=== PATIENT | male | born 1955 | race Caucasian/White ===

== ENCOUNTER 2022-09-05 12:41 | Emergency (ER) | payer OTHER ==
--- OUTSIDE RECORDS SUMMARY | 2022-09-05 12:44 | XMS REPORT | Continuity of Care Document ---
:1955 Author Organization [facility] t Address [address] [place] [address] [address] [place] [address] Care Team Providers Name Role Phone DR RUFUS YOUNG Attending Clinician Unavailable DR RUFUS YOUNG Admitting Clinician Unavailable Problems This patient has no known problems. Allergies, Adverse Reactions, Alerts Allergy Allergy Status Severity Reaction(s) Onset Inactive Treating Comm ents Source Name Type Date Date Clinician No Known DA Active [facility] s Medications This patient has no known medications. Vital Signs Vital Name Observation Time Observation Value Comments Source Weight 2019-08-22 04:30:00 104.77 KG Height 2019-08-22 04:30:00 177.8 CM Procedures Procedure Date / Time Performed Performing Clinician Sour e REPL LT MT-PHALANG JNT 2019-08-22 00:00:00 [facility] OPEN Center Encounters Start End Encounter Admission Attending Care Care Encounter Source Date/Time Date/Time Type Type Clinicians Facility Department ID 2019-08-22 2019-08-22 Outpatient LIANNA [place] [facility] [id number] 04:22:00 08:30:00 RUFUS Melchor [facility] Results This patient has no known results.
[2022-09-05 14:17] LABS: Hematocrit 46.3 % (39.6-49.0); MCV 93.8 fL (80-100); MPV 8.4 fL (7.6-11.3); Protime INR 1.1; RBC Red Blood Cell Count 4.93 M/uL (4.33-5.43)
--- NOTE | 2022-09-05 14:25 | RAD REPORT ---
EXAM DESCRIPTION: CT - Head Brain Wo Cont - 09/05/2022 2:10 pm CLINICAL HISTORY: dizziness COMPARISON: No comparisons TECHNIQUE: All CT scans are performed using dose optimization technique as appropriate and may inclu de automated exposure control or mA/KV adjustment according to patient size. FINDINGS: No intracranial hemorrhage, hydrocephalus or extra-axial fluid collection.No areas of brai n edema or evidence of midline shift. The paranasal sinuses and mastoids are clear. The calvarium is intact. IMPRESSION: No acute intracranial abnormality.
--- NOTE | 2022-09-05 14:27 | RAD REPORT ---
EXAM DESCRIPTION: CT - Head angio - 09/05/2022 2:10 pm CLINICAL HISTORY: dizziness COMPARISON: Head Brain Wo Cont dated 09/05/2022 TECHNIQUE: CT angiography of the head was performed with MIPs. All CT scans are performed using dose optimization technique as appropriate and may include automated exposure control or mA/KV adjustment according to patient size. FINDINGS: Anterior circulation: No aneurysm or large vessel occlusion. No hemodynamically significant stenosis. No arteriovenous malf ormation identified. Posterior circulation: No aneurysm or large vessel occlusion. No hemodynamically significant stenosis. No arteriovenous malf ormation identified. IMPRESSION: No significant flow abnormality is detected.
--- NOTE | 2022-09-05 14:28 | RAD REPORT ---
EXAM DESCRIPTION: CT - Neck Angio - 09/05/2022 2:10 pm CLINICAL HISTORY: dizziness COMPARISON: No comparisons TECHNIQUE: CT angiography of the neck vessels was performed with MIPs. All CT scans are performed using dose optimization technique as appropriate and may include automated exposure control or mA/KV adjustment according to patient size. FINDINGS: A left aortic arch is identified with normal three vessel configuration of the great vesse ls. No significant flow abnormality is seen of the common carotid bilaterally. No significant stenosis is identified involving the cervical segments of both internal carotid arteri es. Normal flow is seen within both vertebral arteries. Bridging osteophytes in the spine. Enlarged multinodular thyroid. Mild right maxillary sinus mucosal thickening. IMPRESSION: No significant flow abnormality of the neck vessels is identified.
[2022-09-05 14:31] LABS: Albumin 3.9 g/dL (3.4-5.0); Bilirubin Direct 0.1 mg/dL (0-0.2); Bilirubin Total 0.7 mg/dL (0.2-1.0); Magnesium 2.2 mg/dL (1.6-2.4); Protein, Total 7.5 g/dL (6.4-8.2); Troponin High Sensitivity 12.2 pg/mL (<58.9)
--- NOTE | 2022-09-05 14:49 | RAD REPORT ---
EXAM DESCRIPTION: MRI - Brain Wo Cont - 09/05/2022 2:30 pm CLINICAL HISTORY: dizziness COMPARISON: No comparisons TECHNIQUE: Sagittal T1-weighted images were obtained along with PD/heavily T2-weighted and T2-FLAIR images. Axial DWI and ADC mapping sequences were also obtained along with coronal heavily T2-weighted images were obtained. FINDINGS: No intracranial hemorrhage, mass or acute infarction. There is no edema or shift of midlin e structures. No extra-axial fluid collections. Signal voids are seen as a normal finding in the angelica r intracranial vessels. Mild T2/FLAIR hyperintense signal foci within the centrum semiovale and coron a radiata. Mastoid air cells and paranasal sinuses are clear. IMPRESSION: No acute intracranial abnormality. Specifically, no evidence of acute infarct. Mild chronometer assembler enzo small vessel ischemic changes.
--- NOTE | 2022-09-05 14:56 | RAD REPORT ---
EXAM DESCRIPTION: RAD - Chest Single View - 09/05/2022 2:47 pm CLINICAL HISTORY: dizziness COMPARISON: Chest Pa And Lat (2 Views) dated 11/06/2016 FINDINGS: Lines: None. Lungs: No evidence of edema or pneumonia. Pleural: No significant pleural effusions or pneumothorax. Cardiac: The heart size is within normal limits. Mediastinum: Within normal limits. Bones: No acute fractures. Other: None IMPRESSION: No acute cardiopulmonary disease.
[2022-09-05] MEDS ORDERED: MECLIZINE HCL 12.5 MG TAB ONE (15:31)
--- NOTE | 2022-09-05 15:54 | ER ---
Nurse's Notes [facility] Name: Arsenio Damon Age: 66 yrs Sex: Male : 1955 Arrival Date: 09/05/2022 Time: 12:44 Bed 12 Private MD: Diagnosis: Vertigo;Dizziness Presentation: 09/05 13:14 Chief complaint: Patient states: Dizziness for 2 days. No N/V. Coronavirus screen: ll1 Vaccine status: Patient reports receiving the 2nd dose of the covid vaccine. Client denies travel out of the [place] in the last 14 days. At this time, the client does not indicate any symptoms associated with coronavirus-19. Ebola Screen: Patient denies travel to an Ebola-affected area in the 21 days before illness onset. Initial Sepsis Screen: Does the patient meet any 2 criteria? No. Patient's initial sepsis screen is negative. Does the patient have a suspected source of infection? No. Patient's initial sepsis screen is negative. Risk Assessment: Do you want to hurt yourself or someone else? Patient reports no desire to harm self or others. Onset of symptoms was September 04, 2022. 13:14 Method Of Arrival: Wheelchair ll1 13:14 Acuity: EDWARDO 3 ll1 Triage Assessment: 13:17 General: Appears in no apparent distress. Behavior is calm, cooperative, appropriate ll1 for age. Pain: Denies pain. Neuro: Reports dizziness. Historical: - Allergies: 13:16 No Known Allergies; ll1 - PMHx: 13:16 Atrial fibrillation; hearing loss; ll1 - PSHx: 13:16 foot SX; ll1 - Immunization history:: Client reports receiving the 2nd dose of the Covid vaccine. - Social history:: Smoking status: Patient reports use of chewing tobacco. Screenin:37 [facility] ED Fall Risk Assessment (Adult) History of falling in the last 3 months, em6 including since admission No falls in past 3 months (0 pts) Confusion or Disorientation No (0 pts) Intoxicated or Sedated No (0 pts) Impaired Gait Yes (1 pt) Mobility Assist Device Used Yes (1 pt) Altered Elimination No (0 pt) Score/Fall Risk Level 0 - 2 = Low Risk Oriented to surroundings, Maintained a safe environment, Educated pt \T\ family on fall prevention, incl call for assistance when getting out of bed, Assessed \T\ reinforced patient's understanding of fall precautions, Provided non-skid footwear, Hourly rounding (assess needs \T\ fall precautionary measures) done, Used ambulatory aids as needed (educated on \T\ assisted with), Used gait belt as appropriate. Abuse screen: Denies threats or abuse. Nutritional screening: No deficits noted. Tuberculosis screening: No symptoms or risk factors identified. Assessment: 15:36 General: Appears in no apparent distress. Behavior is cooperative. Pain: Denies pain. em6 Neuro: Level of Consciousness is awake, alert, obeys commands, Oriented to person, place, time, situation, Reports dizziness. Cardiovascular: Patient's skin is warm and dry. Respiratory: Airway is patent Respiratory effort is even, unlabored, Respiratory pattern is regular, symmetrical. GI: Reports nausea. : No signs and/or symptoms were reported regarding the genitourinary system. EENT: No signs and/or symptoms were reported regarding the EENT system. Derm: No signs and/or symptoms reported regarding the dermatologic system. Musculoskeletal: Circulation, motion, and sensation intact. Range of motion: intact in all extremities. Vital Signs: 13:14 BP 179 / 94; Pulse 61; Resp 17; Temp 98.0; Pulse Ox 98% on R/A; Weight 99.79 kg; Height iw 5 ft. 11 in. (180.34 cm); Pain 0/10; 15:35 BP 155 / 91; Pulse 56; Resp 18; Pulse Ox 98% on R/A; em6 13:14 Body Mass Index 30.68 (99.79 kg, 180.34 cm) ED Course: 12:44 Patient arrived in ED. mr 13:16 Triage completed. ll1 13:17 Arm band placed on. ll1 13:34 Arsenio Martinez PA is PHCP. jmm 13:34 Jacques Alaniz MD is Attending Physician. jmm 14:06 CT completed. Patient tolerated procedure well. Note: 22g diffusics to lt ac by jeffry mancera in ct, labs drawn and sent. Patient moved to CT via wheelchair. 14:11 CT Head Angio In Process Unspecified. EDMS 14:11 CT Neck Angio In Process Unspecified. EDMS 14:11 CT Head Brain wo Cont In Process Unspecified. EDMS 14:23 Brain Wo Cont In Process Unspecified. EDMS 14:49 XRAY Chest (1 view) In Process Unspecified. EDMS 15:26 Danelle Hays, RN is Primary Nurse. em6 15:37 Bed in low position. Call light in reach. Side rails up X 1. ekg monitor on. Pulse em6 ox on. NIBP on. Warm blanket given. 15:52 Carlos Morse MD is Referral Physician. [facility] 15:58 No provider procedures requiring assistance completed. IV discontinued, intact, em6 bleeding controlled, No redness/swelling at site. Pressure dressing applied. Administered Medications: 15:35 Drug: Meclizine 50 mg Route: PO; em6 16:10 Follow up: Response: No adverse reaction em6 Medication: 15:37 VIS not applicable for this client. em6 Outcome: 15:53 Discharge ordered by . jmm 16:09 Discharged to home via wheelchair. em6 16:09 Condition: stable 16:09 Discharge instructions given to patient, family, Instructed on discharge instructions, follow up and referral plans. medication usage, Demonstrated understanding of instructions, follow-up care, medications. 16:10 Patient left the ED. em6 Signatures: Dispatcher [employer] EDMS Arsenio Martinez PA PA [facility] Miguel A Alisson Ch, Neva Lowe, NADIR RN iw Chuck Mercado, RN RN ll1 Danelle Hays, RN RN em6 Corrections: (The following items were deleted from the chart) 13:17 13:16 PMHx: foot SX; ll1 ll1 13:21 13:14 BP 179 / 94; Pulse 61bpm; Resp 17bpm; Pulse Ox 98% RA; 99.79 kg; Height 5 ft. 11 iw in.; BMI: 30.6; Pain 0/10; ll1
--- NOTE | 2022-09-05 15:54 | EDPHYS ---
Physician Documentation [facility] Name: Arsenio Damon Age: 66 yrs Sex: Male : 1955 Arrival Date: 09/05/2022 Time: 12:44 Bed 12 Private MD: CHAS Physician Jacques Alaniz HPI: 09/05 13:18 This 66 yrs old Male presents to ER via Wheelchair with complaints of Dizziness. jmm 13:18 The patient presents with dizziness, sense of spinning. Onset: The symptoms/episode jmm began/occurred acutely, last night. Modifying factors: The symptoms are alleviated by holding head still, lying down, the symptoms are aggravated by movement of head, standing up, changing position. Associated signs and symptoms: Pertinent negatives: abdominal pain, chest pain, near-syncope, shortness of breath. The patient has not experienced similar symptoms in the past. Historical: - Allergies: 13:16 No Known Allergies; ll1 - PMHx: 13:16 Atrial fibrillation; hearing loss; ll1 - PSHx: 13:16 foot SX; ll1 - Immunization history:: Client reports receiving the 2nd dose of the Covid vaccine. - Social history:: Smoking status: Patient reports use of chewing tobacco. ROS: 13:18 Constitutional: Negative for fever, chills, and weight loss. jmm 13:18 Eyes: Negative for injury, pain, redness, and discharge, Cardiovascular: Negative for chest pain, palpitations, and edema, Respiratory: Negative for shortness of breath, cough, wheezing, and pleuritic chest pain. Exam: 15:51 Constitutional: This is a well developed, well nourished patient who is awake, alert, jmm and in no acute distress. Head/Face: atraumatic. 15:51 ENT: Moist Mucus Membranes Neck: Trachea midline, Supple Chest/axilla: Normal chest wall appearance and motion. Cardiovascular: Regular rate and rhythm. No edema appreciated Respiratory: Normal respirations, no respiratory distress appreciated Abdomen/GI: Non distended Skin: General appearance color normal MS/ Extremity: Moves all extremities, no obvious deformities appreciated, no edema noted to the lower extremities 15:51 Eyes: Nystagmus: nystagmus with fast component noted, bilaterally. 15:51 Neuro: Orientation: is normal, Mentation: is normal, Memory: is normal, Cerebellar function: normal finger to nose testing, Motor: is normal. Vital Signs: 13:14 BP 179 / 94; Pulse 61; Resp 17; Temp 98.0; Pulse Ox 98% on R/A; Weight 99.79 kg; Height iw 5 ft. 11 in. (180.34 cm); Pain 0/10; 15:35 BP 155 / 91; Pulse 56; Resp 18; Pulse Ox 98% on R/A; em6 13:14 Body Mass Index 30.68 (99.79 kg, 180.34 cm) iw MDM: 13:35 Patient medically screened. [facility] 14:57 Data reviewed: vital signs, nurses notes. [facility] 15:51 Counseling: I had a detailed discussion with the patient and/or guardian regarding: the [facility] historical points, exam findings, and any diagnostic results supporting the discharge/admit diagnosis, lab results, radiology results, the need for outpatient follow up, to return to the emergency department if symptoms worsen or persist or if there are any questions or concerns that arise at home. ED course: Patient is alert nontoxic in appearance in the ED. Cerebellar exam was normal. CT, CTA, MRI did not reveal any acute concerning process. Patient vies follow with neurology for further evaluation otherwise given strict return precautions. Patient understood and agrees plan of care.. 09/05 13:36 Order name: Basic Metabolic Panel; Complete Time: 14:32 [facility] 09/05 13:36 Order name: CBC with Diff; Complete Time: 14:27 [facility] 09/05 13:36 Order name: LFT's; Complete Time: 14:32 [facility] 09/05 13:36 Order name: Magnesium; Complete Time: 14:32 [facility] 09/05 13:36 Order name: NT PRO-BNP; Complete Time: 14:32 [facility] 09/05 13:36 Order name: PT-INR; Complete Time: 14:18 [facility] 09/05 13:36 Order name: Troponin HS; Complete Time: 14:32 [facility] 09/05 13:36 Order name: XRAY Chest (1 view); Complete Time: 14:58 [facility] 09/05 13:36 Order name: CT Head Angio; Complete Time: 14:30 [facility] 09/05 13:36 Order name: CT Neck Angio; Complete Time: 14:30 [facility] 09/05 13:36 Order name: CT Head Brain wo Cont; Complete Time: 14:27 [facility] 09/05 13:37 Order name: MRI - Brain Wo Cont [facility] 09/05 13:46 Order name: Brain Wo Cont; Complete Time: 14:51 [facility] 09/05 14:41 Order name: CREATININE WHOLE BLOOD; Complete Time: 14:42 [facility] 09/05 13:18 Order name: EKG; Complete Time: 13:18 [facility] 09/05 13:18 Order name: EKG - Nurse/Tech; Complete Time: 13:25 [facility] 09/05 13:36 Order name: Cardiac monitoring; Complete Time: 15:35 [facility] 09/05 13:36 Order name: EKG - Nurse/Tech; Complete Time: 13:52 [facility] 09/05 13:36 Order name: IV Saline Lock; Complete Time: 14:18 [facility] 09/05 13:36 Order name: Labs collected and sent; Complete Time: 14:18 [facility] 09/05 13:36 Order name: O2 Per Protocol; Complete Time: 15:35 [facility] 09/05 13:36 Order name: O2 Sat Monitoring; Complete Time: 15:35 [facility] Administered Medications: 15:35 Drug: Meclizine 50 mg Route: PO; em6 16:10 Follow up: Response: No adverse reaction em6 Disposition Summary: 09/05/22 15:53 Discharge Ordered Location: Home [facility] Condition: Stable [facility] Diagnosis - Vertigo [facility] - Dizziness [facility] Followup: [facility] - With: Carlos Morse MD - When: 2 - 3 days - Reason: Recheck today's complaints, Continuance of care, Re-evaluation by your physician Discharge Instructions: - Discharge Summary Sheet [facility] - Vertigo [facility] - How to Perform the Rashawn Maneuver [facility] Forms: - Medication Reconciliation Form [facility] - Thank You Letter [facility] - Antibiotic Education [facility] - Prescription Opioid Use [facility] Prescriptions: - Meclizine 25 mg Oral Tablet - take 1 tablet by ORAL route every 8 hours As needed; 30 tablet; Refills: 0, [facility] Product Selection Permitted Signatures: Dispatcher [employer] EDMS Arsenio Martinez PA PA jmm Chuck Mercado RN RN ll1 Danelle Hays RN RN em6 Corrections: (The following items were deleted from the chart) 13:17 13:16 PMHx: foot SX; ll1 ll1
[2022-09-05 16:14] VITALS: TEMP 98; O2SAT 98
[2022-09-05 16:15] VITALS: BP 155/91
--- NOTE | 2022-09-07 17:51 | EKG ---
Test Date: 2022-09-05 Test Time: 13:27:55 Curator Of Manuscripts: MARIANNE MEASUREMENT RESULTS: Intervals: Rate: 57 MS: 126 QRSD: 88 QT: 428 QTc: 416 Palmer: P: 9 MS: 126 QRS: 22 T: 52 INTERPRETIVE STATEMENTS: Sinus bradycardia Otherwise normal ECG Compared to ECG 11/28/2016 09:15:42 Sinus rhythm no longer present Electronically Signed On 09-07-22 17:46:13 [employer] by Efren Edwards
== END 2022-09-05 16:10 | disposition home or self-care (01) ==
LOC: ER 12:41
DX: R42 Dizziness and giddiness (principal); I48.91 Unspecified atrial fibrillation; F17.220 Nicotine dependence, chewing tobacco, uncomplicated
CPT/HCPCS: 93005; 85025; 80048; 36415; 83735; 85610; 82565; 80076; 84484; 83880; 70450; 70496; 70498; 71045; 70551; 99284; Q9967; J8597

== ENCOUNTER 2023-06-12 15:22 | Observation (INO) | payer OTHER ==
--- OUTSIDE RECORDS SUMMARY | 2023-06-12 15:36 | XMS REPORT | Continuity of Care Document ---
:1955 Author Organization [facility] t Address [address] [place] [address] [place] [id number] Care Team Providers Name Role Phone Paul Grady Attending Clinician Unavailable DR RUFUS YOUNG Attending Clinician Unavailable DR RUFUS YOUNG Admitting Clinician Unavailable Problems This patient has no known problems. Allergies, Adverse Reactions, Alerts Allergy Allergy Status Severity Reaction(s) Onset Inactive Treating Comm ents Source Name Type Date Date Clinician No Known DA Active [facility] s Medications This patient has no known medications. Vital Signs Vital Name Observation Time Observation Value Comments Source Height 2019-08-22 04:30:00 177.8 CM Weight 2019-08-22 04:30:00 104.77 KG Procedures Procedure Date / Time Performed Performing Clinician [facility] e REPL LT MT-PHALANG JNT 2019-08-22 00:00:00 [place] Center Encounters Start End Encounter Admission Attending Care Care Encounter Source Date/Time Date/Time Type Type Clinicians Facility Department ID 2023-05-03 Outpatient Paul Grady [facility] [id number] 13:24:01 [id number] [facility] 2019-08-22 2019-08-22 Outpatient LIANNA ATKINS [facility] [id number] [facility] 04:22:00 08:30:00 RUFUS [facility] Results This patient has no known results.
[2023-06-12 16:28] LABS: Albumin 3.6 g/dL (3.4-5.0); Bilirubin Total 0.7 mg/dL (0.2-1.0); Potassium 3.8 mEq/L (3.5-5.1); Troponin High Sensitivity 13.4 pg/mL (<58.9)
[2023-06-12 16:32] LABS: Absolute Lymphocytes (CBC) 1.9 K/uL (0.7-4.9); Hematocrit 39.8 % (39.6-49.0); Lymphocytes % 23.6 % (15.3-44.8); MCV 94.3 fL (80-100); MPV 8.1 fL (7.6-11.3); Platelets 230 thou/uL (152-406); RBC Red Blood Cell Count 4.22 M/uL (4.33-5.43)
--- NOTE | 2023-06-12 17:21 | RAD REPORT ---
EXAM DESCRIPTION: CT - Chest For Pe Angio - 06/12/2023 5:10 pm CLINICAL HISTORY: Chest pain. CHEST PAIN COMPARISON: No comparisons TECHNIQUE: CT angiogram of the pulmonary arteries was performed with MIP. All CT scans are performed using dose optimization technique as appropriate and may include automated exposure control or mA/KV adjustment according to patient size. FINDINGS: Pulmonary thromboembolism is seen involving bilateral segmental branches, most significant on the right and in the medial left base pulmonary arterial tree. No evidence of RV strain pattern. No acute aortic finding demonstrated. The lungs are clear. No significant pericardial or pleural fluid. No concerning bony finding. IMPRESSION: Positive for [id number] bilateral pulmonary thromboembolism. No RV strain pattern seen. No acute lung findings.
--- NOTE | 2023-06-12 17:33 | EDPHYS ---
Physician Documentation [facility] – [place], [place] Name: Arsenio Damon Age: 67 yrs Sex: Male : 1955 Arrival Date: 06/12/2023 Time: 15:22 Bed 8 Private MD: ED Physician José Varela HPI: 06/12 16:05 This 67 yrs old Male presents to ER via Wheelchair with complaints of DVT. rt 16:05 Patient presents to the ED with DVT found on outpatient study. The patient has had rt right leg swelling since April. Denies any pain to the area. He does report a cough but denies any chest pain or shortness of breath. Denies other acute complaints at this time, symptoms are moderate severity, no other aggravating or alleviating factors.. Historical: - Allergies: 15:38 No Known Allergies; kc6 - PMHx: 15:38 Atrial fibrillation; Hearing Loss; kc6 15:55 Hypertensive disorder; kc6 - PSHx: 15:38 foot sx; kc6 - Immunization history:: Client reports receiving the 2nd dose of the Covid vaccine, Flu vaccine is not up to date. - Social history:: Smoking status: Patient reports use of chewing tobacco. - Family history:: not pertinent. ROS: 16:05 Constitutional: Negative for fever, chills, and weight loss, Neck: Negative for injury, rt pain, and swelling, Cardiovascular: Negative for chest pain, palpitations, and edema, Abdomen/GI: Negative for abdominal pain, nausea, vomiting, diarrhea, and constipation, Skin: Negative for injury, rash, and discoloration, Neuro: Negative for headache, weakness, numbness, tingling, and seizure, Psych: Negative for depression, anxiety, suicide ideation, homicidal ideation, and hallucinations, 16:05 Respiratory: Positive for cough, Negative for shortness of breath, 16:05 MS/extremity: Positive for swelling, Negative for pain, Exam: 16:05 Constitutional: This is a well developed, well nourished patient who is awake, alert, rt and in no acute distress. Head/Face: Normocephalic, atraumatic. Chest/axilla: Normal chest wall appearance and motion. Nontender with no deformity. No lesions are appreciated. Cardiovascular: Regular rate and rhythm with a normal S1 and S2. No gallops, murmurs, or rubs. Normal PMI, no JVD. No pulse deficits. Respiratory: Lungs have equal breath sounds bilaterally, clear to auscultation and percussion. No rales, rhonchi or wheezes noted. No increased work of breathing, no retractions or nasal flaring. Abdomen/GI: Soft, non-tender, with normal bowel sounds. No distension or tympany. No guarding or rebound. No evidence of tenderness throughout. Skin: Warm, dry with normal turgor. Normal color with no rashes, no lesions, and no evidence of cellulitis. Neuro: Awake and alert, GCS 15, oriented to person, place, time, and situation. Cranial nerves II-XII grossly intact. Motor strength 5/5 in all extremities. Sensory grossly intact. Cerebellar exam normal. Normal gait. Psych: Awake, alert, with orientation to person, place and time. Behavior, mood, and affect are within normal limits. 16:05 ECG was reviewed by the Attending Physician. 16:05 Musculoskeletal/extremity: 3+ edema to the right lower extremity, pulses, motor, sensation intact, no tenderness. Vital Signs: 15:36 BP 192 / 95; Pulse 59; Resp 16 S; Temp 99(O); Pulse Ox 98% on R/A; Weight 102.06 kg kc6 (R); Height 5 ft. 10 in. (R); Pain 0/10; 16:35 BP 192 / 98; Pulse 58; Resp 16 S; Pulse Ox 98% on R/A; kc6 17:26 BP 199 / 94; Pulse 58; Resp 18 S; Pulse Ox 99% on R/A; kc6 18:00 BP 188 / 94; Pulse 57; Resp 17 S; Pulse Ox 98% on R/A; kc6 18:44 BP 184 / 85; Pulse 63; Resp 16 S; Pulse Ox 100% on R/A; kc6 19:31 BP 138 / 80; Pulse 58; Resp 18; Pulse Ox 99% on R/A; rv 19:48 BP 150 / 80; Pulse 54; Resp 16; Temp 98; Pulse Ox 98% on R/A; rv 15:36 Body Mass Index 32.28 (102.06 kg, 177.8 cm) [facility] 15:36 Pain Scale: Adult kc Franc Coma Score: 19:31 Eye Response: spontaneous(4). Motor Response: obeys commands(6). Verbal Response: rv oriented(5). Total: 15. MDM: 15:39 Patient medically screened. rt 17:33 Differential diagnosis: DVT, PE. Data reviewed: vital signs, nurses notes, lab test rt result(s), EKG, radiologic studies. Consideration of Admission/Observation Patient was admitted/placed on observation. Management of patient was discussed with the following: Hospitalist: Agrees to admit. I considered the following discharge prescriptions or medication management in the emergency department Medications were administered in the Emergency Department. See MAR. Independent interpretation of the following test(s) in the Emergency Department CT Scan: My interpretation is Pulmonary emboli seen on interpretation of the CT scan images. Care significantly affected by the following chronic conditions: Hypertension. Counseling: I had a detailed discussion with the patient and/or guardian regarding the historical points, exam findings, and any diagnostic results supporting the discharge/admit diagnosis, lab results, radiology results, the need for further work-up and treatment in the hospital. 06/12 15:54 Order name: CBC with Diff; Complete Time: 16:38 rt 06/12 15:54 Order name: CMP; Complete Time: 16:38 rt 06/12 15:54 Order name: Troponin High Sensitivity; Complete Time: 16:38 rt 06/12 15:54 Order name: BNP; Complete Time: 16:38 rt 06/12 18:37 Order name: CBC with Automated Diff EDMS 06/12 18:37 Order name: CBC with Automated Diff EDMS 06/12 18:37 Order name: Comprehensive Metabolic Panel EDMS 06/12 18:37 Order name: Comprehensive Metabolic Panel EDMS 06/12 18:37 Order name: Lipid Profile EDMS 06/12 18:37 Order name: Lipid Profile EDMS 06/12 15:54 Order name: CT Chest For PE Angio; Complete Time: 17:22 rt EC:05 Rate is 58 beats/min. Rhythm is regular, Sinus bradycardia with No ectopy. Right axis rt deviation noted. VT interval is normal. QRS interval is normal. QT interval is normal. No Q waves. T waves are Normal. No ST changes noted. Interpreted by me. Administered Medications: 17:40 Drug: Enoxaparin Sub-Q 1 mg/kg Sub-Q once Route: Sub-Q; Site: right upper arm; ld1 18:00 Follow up: Response: No adverse reaction kc6 17:43 Drug: carvedilol PO 12.5 mg PO once; administer with food Route: PO; ld1 18:44 Follow up: Response: No adverse reaction; Blood pressure is lowered kc6 Disposition Summary: 06/12/23 17:32 Hospitalization Ordered Notes: Hospitalization Status: Observation rt Provider: Raymond Bo rt Location: Telemetry/MedSurg (observation) rt Condition: Stable rt Problem: new rt Symptoms: are unchanged rt Bed/Room Type: Standard rt Room Assignment: 222(06/12/23 19:34) cg Diagnosis - Deep venous thrombosis of right lower extremity rt - Bilateral pulmonary emboli rt Forms: - Medication Reconciliation Form rt - SBAR form rt - Leadership Thank You Letter rt Signatures: Dispatcher [employer] Nilda Stallings RN RN cg Petrona Maguire RN RN ld1 Claribel Vela RN RN kc6 José Varela MD MD rt Corrections: (The following items were deleted from the chart) 19:34 17:32 rt cg
--- NOTE | 2023-06-12 17:33 | ER ---
Nurse's Notes [facility] Name: Arsenio Damon Age: 67 yrs Sex: Male : 1955 Arrival Date: 06/12/2023 Time: 15:22 Bed 8 Private MD: Diagnosis: Deep venous thrombosis of right lower extremity;Bilateral pulmonary emboli Presentation: 06/12 15:36 Chief complaint: Spouse and/or significant other states: right leg swelling since kc6 april. sent here from Dr. Grady's office for positive results of DVT. denies pain to the leg. Coronavirus screen: At this time, the client does not indicate any symptoms associated with coronavirus-19. Ebola Screen: No symptoms or risks identified at this time. Initial Sepsis Screen: Does the patient meet any 2 criteria? No. Patient's initial sepsis screen is negative. Does the patient have a suspected source of infection? No. Patient's initial sepsis screen is negative. Risk Assessment: Do you want to hurt yourself or someone else? Patient reports no desire to harm self or others. Onset of symptoms was June 12, 2023. 15:36 Method Of Arrival: Wheelchair kc 15:36 Acuity: EDWARDO 2 kc6 Triage Assessment: 15:38 General: Appears in no apparent distress. comfortable, well groomed, Behavior is calm, kc6 cooperative, appropriate for age. Pain: Denies pain. EENT: No signs and/or symptoms were reported regarding the EENT system. Neuro: Level of Consciousness is awake, alert, obeys commands, Oriented to person, place, time, situation, Appropriate for age. Cardiovascular: Capillary refill < 3 seconds. Respiratory: Airway is patent Trachea midline Respiratory effort is even, unlabored, Respiratory pattern is regular, symmetrical, Denies shortness of breath. GI: No signs and/or symptoms were reported involving the gastrointestinal system. : No signs and/or symptoms were reported regarding the genitourinary system. Derm: No signs and/or symptoms reported regarding the dermatologic system. Skin is intact, is healthy with good turgor, Skin is pink, warm \T\ dry. Musculoskeletal: No signs and/or symptoms reported regarding the musculoskeletal system. Circulation, motion, and sensation intact. Capillary refill < 3 seconds, Range of motion: intact in all extremities. Historical: - Allergies: 15:38 No Known Allergies; kc6 - PMHx: 15:38 Atrial fibrillation; Hearing Loss; kc6 15:55 Hypertensive disorder; kc6 - PSHx: 15:38 foot sx; kc6 - Immunization history:: Client reports receiving the 2nd dose of the Covid vaccine, Flu vaccine is not up to date. - Social history:: Smoking status: Patient reports use of chewing tobacco. - Family history:: not pertinent. Screenin:40 [facility] ED Fall Risk Assessment (Adult) History of falling in the last 3 months, kc6 including since admission No falls in past 3 months (0 pts) Confusion or Disorientation No (0 pts) Intoxicated or Sedated No (0 pts) Impaired Gait No (0 pts) Mobility Assist Device Used No (0 pt) Altered Elimination No (0 pt) Score/Fall Risk Level 0 - 2 = Low Risk. Abuse screen: Denies threats or abuse. Denies injuries from another. Nutritional screening: No deficits noted. Tuberculosis screening: No symptoms or risk factors identified. Assessment: 15:41 Reassessment: please see triage assessment. kc6 16:34 Reassessment: Patient appears in no apparent distress at this time. No changes from kc6 previously documented assessment. Patient and/or family updated on plan of care and expected duration. Pain level reassessed. Patient is alert, oriented x 3, equal unlabored respirations, skin warm/dry/pink. 17:25 Reassessment: Patient appears in no apparent distress at this time. No changes from kc6 previously documented assessment. Patient and/or family updated on plan of care and expected duration. Pain level reassessed. Patient is alert, oriented x 3, equal unlabored respirations, skin warm/dry/pink. 18:00 Reassessment: Patient appears in no apparent distress at this time. No changes from kc6 previously documented assessment. Patient and/or family updated on plan of care and expected duration. Pain level reassessed. Patient is alert, oriented x 3, equal unlabored respirations, skin warm/dry/pink. 18:44 Reassessment: Patient appears in no apparent distress at this time. No changes from kc6 previously documented assessment. Patient and/or family updated on plan of care and expected duration. Pain level reassessed. Patient is alert, oriented x 3, equal unlabored respirations, skin warm/dry/pink. 18:56 Reassessment: Salma Damon - - [phone]. ld1 Vital Signs: 15:36 BP 192 / 95; Pulse 59; Resp 16 S; Temp 99(O); Pulse Ox 98% on R/A; Weight 102.06 kg kc6 (R); Height 5 ft. 10 in. (R); Pain 0/10; 16:35 BP 192 / 98; Pulse 58; Resp 16 S; Pulse Ox 98% on R/A; kc6 17:26 BP 199 / 94; Pulse 58; Resp 18 S; Pulse Ox 99% on R/A; kc6 18:00 BP 188 / 94; Pulse 57; Resp 17 S; Pulse Ox 98% on R/A; kc6 18:44 BP 184 / 85; Pulse 63; Resp 16 S; Pulse Ox 100% on R/A; kc6 19:31 BP 138 / 80; Pulse 58; Resp 18; Pulse Ox 99% on R/A; rv 19:48 BP 150 / 80; Pulse 54; Resp 16; Temp 98; Pulse Ox 98% on R/A; rv 15:36 Body Mass Index 32.28 (102.06 kg, 177.8 cm) kc6 15:36 Pain Scale: Adult kc6 Franc Coma Score: 19:31 Eye Response: spontaneous(4). Motor Response: obeys commands(6). Verbal Response: rv oriented(5). Total: 15. ED Course: 15:24 Patient arrived in ED. im 15:26 José Varela MD is Attending Physician. rt 15:36 Claribel Vela RN is Primary Nurse. kc6 15:38 Triage completed. kc6 15:38 Arm band placed on. kc6 15:41 Patient has correct armband on for positive identification. Placed in gown. Bed in low kc6 position. Call light in reach. Side rails up X2. Adult w/ patient. Client placed on continuous cardiac and pulse oximetry monitoring. NIBP monitoring applied. radiation monitor on. 15:55 Inserted saline lock: 18 gauge in right antecubital area, using aseptic technique. kc6 Blood collected. Patient maintains SpO2 saturation greater than 95% on room air. 17:12 CT Chest For PE Angio In Process Unspecified. EDMS 17:32 Raymond Bo MD is Hospitalizing Provider. rt 18:44 No provider procedures requiring assistance completed. Patient admitted, IV remains in kc6 place. 19:04 Primary Nurse role handed off by Claribel Vela, NADIR bp 19:04 Umair Vale, RN is Primary Nurse. bp 19:50 Provided Education on: pulmonary embolism. rv Administered Medications: 17:40 Drug: Enoxaparin Sub-Q 1 mg/kg Sub-Q once Route: Sub-Q; Site: right upper arm; ld1 18:00 Follow up: Response: No adverse reaction kc6 17:43 Drug: carvedilol PO 12.5 mg PO once; administer with food Route: PO; ld1 18:44 Follow up: Response: No adverse reaction; Blood pressure is lowered kc Medication: 18:45 VIS not applicable for this client. [facility] Outcome: 17:32 Decision to Hospitalize by Provider. rt 18:44 Admitted to ER Hold. Please see [facility] for further documentation. kc6 18:44 Condition: stable 18:44 Instructed on the need for admit, 20:00 Patient left the ED. rv Signatures: Dispatcher [employer] EDMS Umair Vale, RN RN Akhil Hatch RN RN rv Petrona Maguire RN RN ld1 Claribel Vela, NADIR RN kc6 José Varela MD MD rt Phuong Fields
[2023-06-12] MEDS ORDERED: ENOXAPARIN 100 MG/ML SYR SQ ONE (17:50)
[2023-06-12] MEDS ORDERED: carvediloL 6.25 MG TAB ONE (17:54)
[2023-06-12] MEDS ORDERED: ACETAMINOPHEN 500 MG TAB PO PRN (18:33)
[2023-06-12] MEDS ORDERED: ONDANSETRON 4 MG/2 ML VIAL IV PRN (18:33)
[2023-06-12] MEDS ORDERED: MORPHINE 2 MG/ML SYR IV PRN (18:33)
[2023-06-12] MEDS: NA CHLORIDE 0.9% 1,000 ML IV SCH (19:00)
[2023-06-12 20:15] VITALS: O2SAT 98
[2023-06-12] MEDS ORDERED: ENOXAPARIN 100 MG/ML SYR SQ SCH (21:00)
[2023-06-12 22:52] VITALS: BMI 32.3
[2023-06-13 03:13] LABS: Absolute Lymphocytes (CBC) 1.9 K/uL (0.7-4.9); Hematocrit 38.6 % (39.6-49.0); Lymphocytes % 29.8 % (15.3-44.8); MCV 94.3 fL (80-100); MPV 8.1 fL (7.6-11.3); Platelets 207 thou/uL (152-406); RBC Red Blood Cell Count 4.09 M/uL (4.33-5.43)
[2023-06-13 03:44] LABS: Albumin 3.2 g/dL (3.4-5.0); Bilirubin Total 0.7 mg/dL (0.2-1.0); Protein, Total 6.6 g/dL (6.4-8.2)
[2023-06-13] MEDS ORDERED: INFLUENZA VACCINE (for 6+ mo) 0.5 ML DOSE IMVAC ONE (08:00)
[2023-06-13] MEDS ORDERED: PNEUMOCOCCAL VACCINE 0.5 ML IMVAC ONE (08:00)
[2023-06-13] MEDS: NA CHLORIDE 0.9% 1,000 ML IV SCH (08:20)
[2023-06-13] MEDS ORDERED: MECLIZINE HCL 12.5 MG TAB PO PRN (08:56)
[2023-06-13] MEDS ORDERED: FUROSEMIDE 20 MG/ 2ML VIAL IV ONE (08:56)
[2023-06-13] MEDS ORDERED: PANTOPRAZOLE 40MG TABLET PO SCH (09:00)
[2023-06-13] MEDS ORDERED: ENOXAPARIN 100 MG/ML SYR SQ SCH (09:00)
[2023-06-13] MEDS ORDERED: carvediloL 25 MG TAB PO SCH (09:00)
[2023-06-13] MEDS ORDERED: APIXABAN 5 MG TABLET PO SCH (09:00)
[2023-06-13 13:09] VITALS: BP 147/79; TEMP 97.8
--- NOTE | 2023-06-13 14:09 | P.HP ---
Certification for Inpatient Patient admitted to: Observation With expected LOS: <2 Midnights Patient will require the following post-hospital care: None Practitioner: I am a practitioner with admitting privileges, knowledge of patient current condition, hospital course, and medical plan of care. Services: Services provided to patient in accordance with Admission requirements found in Title 42 Section 412.3 of the Code of Federal Regulations Patient History Date of Service: 06/12/23 Reason for admission: DVT/PE History of Present Illness: Patient is a 67-year-old gentleman with cardiomyopathy and ejection fraction of less than 20%, who presents to the hospital with swelling of the lower extremity. Patient was also feeling some shortness of breath. In the emergency room patient's work-up revealed a DVT and a pulmonary embolism. Patient is deaf and is really difficult to communicate with as I am not able to do sign language. His significant other is able to sign and will talk with patient when she gets there. Otherwise, patient denies any new complaints. Patient has not seen a oncology nurse navigator in quite a while. We will go ahead and admit the patient to the hospital and start on anticoagulation. Patient has a history of atrial fibrillation. Rate is controlled. Patient is not on anticoagulation so start him on loading dose of Eliquis for the DVT and PE. Patient will be admitted to the hospital for further evaluation. Allergies No Known Allergies Allergy (Verified 06/12/23 20:56) Home Medications: Carvedilol [Coreg] 25 mg PO BID 06/12/23 Meclizine HCl 25 mg PO DAILY PRN 06/12/23 Pantoprazole [Protonix Tab*] 40 mg PO DAILY 06/12/23 lisinopriL [Lisinopril] 10 mg PO DAILY 06/12/23 Apixaban [Eliquis] 5 mg PO BID #70 tablet 06/13/23 - Past Medical/Surgical History Has patient received pneumonia vaccine in the past: No Diabetic: No -: Hypertension -: CHF; cardiomyopathy with an EF<20 -: Deaf Past Surgical History: Patient denies surgical history - Family History Mother Medical History: Heart disease Father Medical History: Stroke Brother Medical History: Cancer - Social History Smoking Status: Unknown if ever smoked Alcohol use: No CD- Drugs: No Caffeine use: No Place of Residence: Home Review of Systems 10-point ROS is otherwise unremarkable Physical Examination - Vital Signs Temperature: 97.8 F Blood Pressure: 147/79 Pulse: 59 Respirations: 20 Pulse Ox (%): 96 - Physical Exam General: Alert, In no apparent distress, Oriented x3 HEENT: Atraumatic, PERRLA, Mucous membr. moist/pink, EOMI, Sclerae nonicteric Neck: Supple, 2+ carotid pulse no bruit, No LAD, Without JVD or thyroid abnormality Respiratory: Diminished, Crackles/rales Cardiovascular: Regular rate/rhythm, Normal S1 S2, No murmurs Gastrointestinal: Normal bowel sounds, Soft and benign, Non-distended, No tenderness Musculoskeletal: No clubbing, No swelling, No tenderness Integumentary: No rashes Neurological: Normal gait, Normal speech, Normal strength at 5/5 x4 extr, Normal tone, Sensation intact, Cranial nerves 3-12 intact, Normal affect Lymphatics: No axilla or inguinal lymphadenopathy - Studies Laboratory Data (last 24 hrs) 06/12/23 06/12/23 15:58 15:58 WBC 8.10 Hgb 13.7 Hct 39.8 Plt Count 230 Sodium 136 Potassium 3.8 BUN 14 Creatinine 0.93 Glucose 102 Total Bilirubin 0.7 AST 11 L ALT 19 Alkaline Phosphatase 68 Assessment & Plan - Problems (Diagnosis) (1) Acute DVT (deep venous thrombosis) Current Visit: Yes Status: Acute (2) Pulmonary embolism Current Visit: Yes Status: Acute (3) Cardiomyopathy Current Visit: Yes Status: Chronic (4) Heart failure with reduced ejection fraction Current Visit: Yes Status: Chronic (5) Atrial fibrillation Current Visit: Yes Status: Chronic - Plan Plan: 1. Continue with anticoagulation 2. Echocardiogram 3. Antiplatelet therapy 4. Cardiac meds 5. Patient needs to follow-up with cardiology as an outpatient 6. Strict blood pressure control 7. Monitor labs 8. GI DVT prophylaxis Discharge Plan: Home - Advance Directives Does patient have a Living Will: No Does patient have a Durable POA for Healthcare: No - Code Status/Comfort Care Code Status Assessed: Yes Code Status: Full Code Critical Care: No Time Spent Managing PTS Care (In Minutes): 45
--- NOTE | 2023-06-13 14:11 | P.DS ---
Discharge Date: 06/13/23 Disposition: ROUTINE DISCHARGE Discharge Condition: GOOD Reason for Admission: DVT/PE - Problems (1) Acute DVT (deep venous thrombosis) Current Visit: Yes Status: Acute (2) Pulmonary embolism Current Visit: Yes Status: Acute (3) Cardiomyopathy Current Visit: Yes Status: Chronic (4) Heart failure with reduced ejection fraction Current Visit: Yes Status: Chronic (5) Atrial fibrillation Current Visit: Yes Status: Chronic Brief History of Present Illness: Patient is a 67-year-old gentleman with cardiomyopathy and ejection fraction of less than 20%, who presents to the hospital with swelling of the lower extremity. Patient was also feeling some shortness of breath. In the emergency room patient's work-up revealed a DVT and a pulmonary embolism. Patient is deaf and is really difficult to communicate with as I am not able to do sign language. His significant other is able to sign and will talk with patient when she gets there. Otherwise, patient denies any new complaints. Patient has not seen a car dumper operator in quite a while. We will go ahead and admit the patient to the hospital and start on anticoagulation. Patient has a history of atrial fibrillation. Rate is controlled. Patient is not on anticoagulation so start him on loading dose of Eliquis for the DVT and PE. Patient will be admitted to the hospital for further evaluation. Hospital Course: Patient's work-up has been unremarkable. Echocardiogram was performed. DVT and PE are being treated with anticoagulation. At this time, patient is doing well and stable for discharge with outpatient follow-up. Vital Signs/Physical Exam: Temp Pulse Resp BP Pulse Ox 97.8 F 59 20 147/79 H 96 06/13/23 14:09 06/13/23 14:09 06/13/23 14:09 06/13/23 14:09 06/13/23 14:09 General: Alert, In no apparent distress, Oriented x3 Laboratory Data at Discharge: WBC 6.30 thou/uL (4.3-10.9) 06/13/23 02:32 Hgb 13.4 g/dL (13.6-17.9) L 06/13/23 02:32 Hct 38.6 % (39.6-49.0) L 06/13/23 02:32 Plt Count 207 thou/uL (152-406) 06/13/23 02:32 Sodium 138 mEq/L (136-145) 06/13/23 02:32 Potassium 4.0 mEq/L (3.5-5.1) 06/13/23 02:32 BUN 10 mg/dL (7-18) 06/13/23 02:32 Creatinine 0.83 mg/dL (0.70-1.30) 06/13/23 02:32 Glucose 95 mg/dL (74-106) 06/13/23 02:32 Total Bilirubin 0.7 mg/dL (0.2-1.0) 06/13/23 02:32 AST 11 U/L (15-37) L 06/13/23 02:32 ALT 20 U/L (16-61) 06/13/23 02:32 Alkaline Phosphatase 64 U/L (45-117) 06/13/23 02:32 Triglycerides 75 mg/dL (<150) 06/13/23 02:32 Cholesterol 184 mg/dL (<200) 06/13/23 02:32 HDL Cholesterol 78 mg/dL (40-60) H 06/13/23 02:32 Cholesterol/HDL Ratio 2.36 06/13/23 02:32 Home Medications: Carvedilol [Coreg] 25 mg PO BID 06/12/23 Meclizine HCl 25 mg PO DAILY PRN 06/12/23 Pantoprazole [Protonix Tab*] 40 mg PO DAILY 06/12/23 lisinopriL [Lisinopril] 10 mg PO DAILY 06/12/23 Apixaban [Eliquis] 5 mg PO BID #70 tablet 06/13/23 New Medications: Apixaban [Eliquis] 5 mg PO BID #70 tablet Physician Discharge Instructions: -DC IV and DC home after echocardiogram is completed -Follow-up with PCP in 1 to 2 weeks -Follow-up with PULMONARY in 1 to 2 weeks -Please call Dr. Bo at [phone] if any questions regarding hospital stay -Please call nursing station at [phone] if any nursing or medication questions -Return to the emergency room if symptoms worsen Diet: AHA Activity: Fall precautions Followup: Garett Carolina MD [ACTIVE - CAN ADMIT] - 1-2 Weeks Paul Grady MD [Primary Care Provider] - 1-2 Weeks Time spent managing pt's care (in minutes): 35
--- NOTE | 2023-06-13 16:39 | EKG ---
Test Date: 2023-06-12 Test Time: 15:36:33 Booth Cleaner: Leena IBRAHIM MEASUREMENT RESULTS: Intervals: Rate: 58 ND: 138 QRSD: 88 QT: 414 QTc: 406 Viking: P: 21 ND: 138 QRS: 104 T: 63 INTERPRETIVE STATEMENTS: Sinus bradycardia Rightward axis Borderline ECG Compared to ECG 09/05/2022 13:27:55 Right-axis deviation now present Electronically Signed On 06-13-23 16:37:44 CDT by Efren Edwards
--- NOTE | 2023-06-14 07:26 | ECHO ---
HEIGHT: 5 ft 10 in WEIGHT: 225 lb 5 oz DATE OF STUDY: 06/13/[address]: Raymond Bo MD 2-DIMENSIONAL: YES M.MODE: YES DOPPLER: YES COLOR FLOW: YES TDS: PORTABLE: YES DEFINITY: BUBBLE STUDY: DIAGNOSIS: HISTORY OF SYSTOLIC HEART FAILURE CARDIAC HISTORY: CATHERIZATION: SURGERY: PROSTHETIC VALVE: PACEMAKER: MEASUREMENTS (cm) DIASTOLIC (NORMALS) SYSTOLIC (NORMALS) IVSd 1.2 (0.6-1.2) LA Diam 3.7 (1.9-4.0) LVEF 65% LVIDd 5.1 (3.5-5.7) LVIDs 3.3 (2.0-3.5) %FS 36% LVPWd 1.2 (0.6-1.2) Ao Diam 2.8 (2.0-3.7) 2 DIMENSIONAL ASSESSMENT: RIGHT ATRIUM: NORMAL LEFT ATRIUM: NORMAL RIGHT VENTRICLE: NORMAL LEFT VENTRICLE: NORMAL TRICUSPID VALVE: NORMAL MITRAL VALVE: MILD MITRAL REGURGITATION PULMONIC VALVE: NORMAL AORTIC VALVE: MILD AORTIC INSUFFICIENCY PERICARDIAL EFFUSION: NONE AORTIC ROOT: NORMAL LEFT VENTRICULAR WALL MOTION: NORMAL DOPPLER/COLOR FLOW: SEE BELOW COMMENTS: 1. NORMAL LEFT VENTRICULAR EJECTION FRACTION 60-65% WITH NORMAL WALL MOTION 2. MILD MITRAL REGURGITATION 3. MILD AORTIC INSUFFICIENCY 4. GRADE I DIASTOLIC DYSFUNCTION TECHNOLOGIST: DEVANTE FRANCIS
== END 2023-06-13 15:15 | disposition home or self-care (01) ==
LOC: ER 15:22 → ERHOLD 18:33 → 2ND 19:49
PROVIDERS: ADMIT Hospitalist; ATTEND Hospitalist
DX: I82.409 Acute embolism and thrombosis of unspecified deep veins of unspecified lower extremity (principal); I26.99 Other pulmonary embolism without acute cor pulmonale; I42.9 Cardiomyopathy, unspecified; I50.22 Chronic systolic (congestive) heart failure; I48.11 Longstanding persistent atrial fibrillation; H91.93 Unspecified hearing loss, bilateral; Z82.49 Family history of ischemic heart disease and other diseases of the circulatory system; Z82.3 Family history of stroke; Z80.9 Family history of malignant neoplasm, unspecified
CPT/HCPCS: 93005; 93306; 85025 ×2; 36415; 80061; 84484; 80053 ×2; 83880; 71275; 96372; 99285; Q9967; J1650; J1940; J7030; G0378